=== PATIENT | male | born 1950 | race Caucasian/White ===

== ENCOUNTER 2019-04-08 14:00 | Outpatient (CLI) | payer MEDICARE ==
--- NOTE | 2019-04-08 14:59 | RAD ---
THREE VIEWS OF THE RIGHT KNEE: 04/08/19 COMPARISON: None. HISTORY: Arthralgia, pain. FINDINGS: There is mild medial and mild lateral compartment narrowing. There is mild patellofemoral joint space narrowing. There is no knee joint effusion, displaced fracture, or evidence of dislocation. IMPRESSION: Mild degenerative joint disease. No acute fracture or dislocation. POS: [facility]
--- NOTE | 2019-04-08 15:01 | RAD ---
KUB: 04/08/19 COMPARISON: None. HISTORY: Evaluate prostate gland. FINDINGS: Metallic linear radiopaque therapy beads overlie the pelvis superior to the pubic symphysis consisten t with prostate cancer treatment. The pelvic ring is intact. There is no widening of the sacroiliac j oints of the pubic symphysis. The bowel gas pattern appears nonobstructed. There is multilevel degene rative change noted within the lumbar spine with disc space narrowing and lateral osteophyte formatio n, most prominent at L2-3. IMPRESSION: Metallic densities in the pelvis suggest radiation therapy beads within the prostate gland. POS: [facility]
--- NOTE | 2019-04-08 15:42 | MRI ---
EXAM: MRI lumbar spine without contrast HISTORY: Lumbar radicular pain with numbness in the right leg for 18 to 20 years COMPARISON: None TECHNIQUE: Multiple planar multisequence MR images were obtained of the lumbar spine without contrast . FINDINGS: Generalized disc desiccation is seen. There is loss of intervertebral disc space height at L2/3 with surrounding endplate degenerative changes. The vertebral bodies demonstrate normal height and alignment without fracture or subluxation. The prevertebral and paraspinal soft tissues are unremarkable. The conus medullaris terminates normally at T12/L1. T12/L1: No significant posterior bulge or protrusion. No posterior facet arthrosis. No central [place] l stenosis. No neural foraminal stenosis L1/2: A moderate generalized concentric disc bulge is seen. No posterior facet arthrosis. Moderate central canal stenosis. Mild bilateral neural foraminal stenosis L2/3: A large disc osteophyte complex is seen. Mild bilateral posterior facet arthrosis. Moderate c entral canal stenosis. Moderate bilateral neural foraminal stenosis L3/4: A moderate generalized concentric disc bulge is seen. There appears to be an extruded disc frag ment measuring 1.5 cm in length and 7 mm in diameter. This likely originated from the level above. This appears to impress upon the exiting right L3/4 nerve root. Mild bilateral posterior facet arthro sis. Mild central canal stenosis. Moderate bilateral neural foraminal stenosis L4/5: A moderate generalized concentric disc bulge is seen. Moderate bilateral posterior facet arthr osis. Mild central canal stenosis. Mild right and moderate left neural foraminal stenosis L5/S1: No significant posterior bulge or protrusion. Mild bilateral posterior facet arthrosis. No c entral canal stenosis. Mild bilateral neural foraminal stenosis IMPRESSION: Degenerative changes of the lumbar spine as above.
== END 2019-04-08 14:01 | disposition home or self-care (01) ==
LOC: BICMRI 14:00
PROVIDERS: ATTEND Family Medicine
DX: M47.26 Other spondylosis with radiculopathy, lumbar region (principal); M25.561 Pain in right knee; M17.11 Unilateral primary osteoarthritis, right knee; M47.27 Other spondylosis with radiculopathy, lumbosacral region
CPT/HCPCS: 72148; 74018

== ENCOUNTER 2021-10-17 16:30 | Outpatient (CLI) | payer MEDICARE | END 2021-10-17 16:31 | disposition home or self-care (01) | LOC: SLEEPLAB 16:30 | PROVIDERS: ATTEND Family Medicine | DX: G47.33 Obstructive sleep apnea (adult) (pediatric) (principal); R06.83 Snoring; I10 Essential (primary) hypertension | CPT/HCPCS: 95806 ==

== ENCOUNTER 2023-09-11 09:53 | Observation (INO) | payer MEDICARE ==
[2023-09-11 10:38] LABS: #Basophils 0.1 thou/uL (0.0-0.2); #Eosinphils 0.1 thou/uL (0.0-0.7); #Monocytes 0.7 thou/uL (0.11-0.59); #Neutrophils 8.1 thou/uL (1.40-6.50); %Basophils 0.6 % (0.0-1.0); %Eosinophils 0.9 % (0.0-10.0); %Lymphocytes 13.1 % (21.0-51.0); %Neutrophils 77.8 % (42.0-75.0); Hematocrit 36.1 % (42.0-52.0); Mean Corpuscular HGB CONC 33.2 g/dL (32.0-36.0); Mean Corpuscular Hemoglobin 30.2 pg (27.0-31.0); Mean Corpuscular Volume 90.7 fl (78.0-98.0); Mean Platelet Volume 8.7 fL (7.4-10.4); Platelet Count 780 10x3/uL (130-400); RBC Distribution Width 12.3 % (11.5-14.5); Red Blood Cell (RBC) Count 3.98 mill/uL (4.70-6.10); White Blood Cell (WBC) Count 10.4 10x3/uL (4.8-10.8)
[2023-09-11 11:11] LABS: ALT (SGPT) 41 U/L (8-55); AST (SGOT) 25 U/L (5-34); Albumin 3.7 g/dL (3.4-4.8); Alkaline Phosphatase 221 U/L (40-110); Anion Gap 16 mmol/L (10-20); BUN (Urea Nitrogen) 17 mg/dL (8.4-25.7); Bilirubin, Total 0.6 mg/dL (0.2-1.2); Calc. Creatinine Clearance 0 mL/min (70-130); Calcium 9.1 mg/dL (7.8-10.44); Carbon Dioxide 25 mmol/L (23-31); Chloride 99 mmol/L (98-107); Estimated GFR 48; Globulin 3.7 g/dL (2.4-3.5); Glucose 336 mg/dL (83-110); Potassium 4.9 mmol/L (3.5-5.1); Protein, Total 7.4 g/dL (5.8-8.1); Sodium 135 mmol/L (136-145)
[2023-09-11 11:13] LABS: Troponin I Less than 0.010 ng/mL (< 0.028)
[2023-09-11] MEDS ORDERED: LOKELMA 10 GM PACKET PO SCH (11:30)
[2023-09-11] MEDS ORDERED: cefTRIAXone (ROCEPHIN) 1 GM VIAL ONE (12:30)
[2023-09-11] MEDS ORDERED: Sodium Chloride 0.9% 100 ML ONE (12:30)
[2023-09-11] MEDS ORDERED: Azithromycin 500 MG VIAL ONE ×3 (12:30→14:24)
[2023-09-11] MEDS ORDERED: Insulin Glargine 30 UNITS/0.3 ML VIAL SC SCH (13:00)
[2023-09-11] MEDS ORDERED: Acetaminophen 325 MG TAB PO PRN (13:52)
[2023-09-11] MEDS ORDERED: Glucagon 1 MG/ML KIT IM PRN (13:57)
[2023-09-11] MEDS ORDERED: Dextrose 5% in Water 1,000 ML IV PRN (13:57)
[2023-09-11] MEDS ORDERED: Dextrose 50% Abboject 50 ML SYRINGE SLOW IVP PRN (13:57)
[2023-09-11 14:04] LABS: Troponin I Less than 0.010 ng/mL (< 0.028)
[2023-09-11 15:49] LABS: CRP (Inflammatory) 4.61 mg/dL (= or < 0.5)
[2023-09-11 19:33] VITALS: BMI 25.7
[2023-09-11] MEDS ORDERED: Melatonin 3 MG TAB PO PRN (20:06)
[2023-09-11] MEDS: Saccharomyces boulardii 250 MG CAP PO SCH (21:00)
[2023-09-11] MEDS: HumaLOG 300 UNITS/3 ML VIAL SC PRN (21:05)
[2023-09-12 04:48] LABS: #Basophils 0.1 thou/uL (0.0-0.2); #Eosinphils 0.2 thou/uL (0.0-0.7); #Monocytes 0.8 thou/uL (0.11-0.59); #Neutrophils 5.4 thou/uL (1.40-6.50); %Basophils 0.7 % (0.0-1.0); %Eosinophils 2.9 % (0.0-10.0); %Lymphocytes 19.3 % (21.0-51.0); %Monocytes 9.4 % (0.0-10.0); Hematocrit 34.4 % (42.0-52.0); Hemoglobin 11.4 g/dL (14.0-18.0); Mean Corpuscular HGB CONC 33.1 g/dL (32.0-36.0); Mean Corpuscular Hemoglobin 30.1 pg (27.0-31.0); Mean Corpuscular Volume 90.8 fl (78.0-98.0); Mean Platelet Volume 8.7 fL (7.4-10.4); RBC Distribution Width 12.2 % (11.5-14.5); Red Blood Cell (RBC) Count 3.79 mill/uL (4.70-6.10); White Blood Cell (WBC) Count 8.1 10x3/uL (4.8-10.8)
[2023-09-12 04:58] LABS: Platelet Count 677 10x3/uL (130-400)
[2023-09-12 05:09] LABS: Anion Gap 13 mmol/L (10-20); BUN (Urea Nitrogen) 15 mg/dL (8.4-25.7); Calc. Creatinine Clearance 67 mL/min (70-130); Calcium 8.8 mg/dL (7.8-10.44); Carbon Dioxide 26 mmol/L (23-31); Chloride 102 mmol/L (98-107); Estimated GFR 57; Glucose 206 mg/dL (83-110); Potassium 4.4 mmol/L (3.5-5.1); Sodium 137 mmol/L (136-145)
[2023-09-12 05:20] LABS: Hemoglobin A1c 8.2 % (4.0-6.0)
[2023-09-12] MEDS ORDERED: LevoFLOXacin 750 MG TAB PO SCH (06:00)
[2023-09-12] MEDS: HumaLOG 300 UNITS/3 ML VIAL SC PRN (06:53)
[2023-09-12] MEDS: Saccharomyces boulardii 250 MG CAP PO SCH (10:18)
[2023-09-12 12:03] VITALS: BP 146/80; TEMP 97.9
== END 2023-09-12 12:50 | disposition home or self-care (01) ==
LOC: ERS 09:53 → INTOOBSV 13:59 → 2NO 13:59
PROVIDERS: ADMIT Internal Medicine; ATTEND Family Medicine
DX: D50.9 Iron deficiency anemia, unspecified (principal); D75.839 Thrombocytosis, unspecified; E87.5 Hyperkalemia; I12.9 Hypertensive chronic kidney disease with stage 1 through stage 4 chronic kidney disease, or unspecified chronic kidney disease; E11.22 Type 2 diabetes mellitus with diabetic chronic kidney disease; N18.30 Chronic kidney disease, stage 3 unspecified; N40.1 Benign prostatic hyperplasia with lower urinary tract symptoms; Z98.890 Other specified postprocedural states; Z82.49 Family history of ischemic heart disease and other diseases of the circulatory system; Z80.3 Family history of malignant neoplasm of breast; R79.89 Other specified abnormal findings of blood chemistry; Z98.49 Cataract extraction status, unspecified eye; Z79.899 Other long term (current) drug therapy
CPT/HCPCS: 36415; 36416; 71045; 80048; 80053; 82728; 83036; 83540; 83550; 83605; 83880; 84484; 85025; 85060; 86140; 87040; 93005; J0456; J0696; J1815; J3490

== ENCOUNTER 2023-10-02 12:30 | Outpatient (CLI) | payer MEDICARE | END 2023-10-02 12:31 | disposition home or self-care (01) | LOC: PET 12:30 | PROVIDERS: ATTEND Family Medicine | DX: R91.8 Other nonspecific abnormal finding of lung field (principal); J18.1 Lobar pneumonia, unspecified organism; J92.9 Pleural plaque without asbestos; J90 Pleural effusion, not elsewhere classified | CPT/HCPCS: 78815; A9552 ==

== ENCOUNTER 2024-04-01 07:55 | Outpatient (CLI) | payer MEDICARE | END 2024-04-01 07:56 | disposition home or self-care (01) | LOC: SCSMRI 07:55 | PROVIDERS: ATTEND Family Medicine | DX: M48.061 Spinal stenosis, lumbar region without neurogenic claudication (principal); M47.816 Spondylosis without myelopathy or radiculopathy, lumbar region; M47.817 Spondylosis without myelopathy or radiculopathy, lumbosacral region | CPT/HCPCS: 72148 ==